=== PATIENT | female | born 1990 | race Caucasian/White ===

== ENCOUNTER 2020-04-14 15:08 | Emergency (ER) | payer MEDICAID ==
[~2020-04-14] VITALS: Ht 172.7 cm; Wt 48.0 kg
[2020-04-14 15:43] LABS: MICROSCOPIC AUTO
[2020-04-14] MEDS ORDERED: HYDROmorphone 1 MG/ML, 1ML INJ ONE (15:53)
[2020-04-14] MEDS ORDERED: ONDANSETRON 2MG/ML, 2ML ONE (15:53)
--- NOTE | 2020-04-14 15:57 | NUR ---
PIV PLACED BY TASK RN. LABS COLLECTED AND TAKEN BY EDUCATION ANALYST. MEDS ADMIN PER JAN. PT TAKEN TO US.
[2020-04-14] MEDS ORDERED: PLEASE ENTER ALLERGIES MC SCH (16:00)
[2020-04-14] MEDS ORDERED: MORPHINE SULFATE 4 MG/ML, 1ML IVPush PRN (16:00)
[2020-04-14] MEDS ORDERED: HYDROmorphone 2 MG/ML, 1ML IVPush PRN (16:00)
[2020-04-14] MEDS ORDERED: ONDANSETRON 2MG/ML, 2ML IVPush ONE (16:00)
[2020-04-14 16:03] LABS: BASOPHILS # (AUTO) 0.04 x10^3/uL (0-0.1); BASOPHILS % (AUTO) 0 % (0-1); EOSINOPHILS # (AUTO) 0.42 x10^3/uL (0-0.4); EOSINOPHILS % (AUTO) 5 % (1-7); LYMPHOCYTES # (AUTO) 2.59 x10^3/uL (1-3.4); LYMPHOCYTES % (AUTO) 29 % (22-44); MD NO; MEAN CORPUSCULAR HEMOGLOBIN 28.3 pg (27.0-34.8); MEAN CORPUSCULAR HGB CONC 32.2 g/dL (32.4-35.8); MEAN CORPUSCULAR VOLUME 87.9 fL (80-100); MEAN PLATELET VOLUME 8.3 fL (7.4-10.4); MONOCYTES # (AUTO) 0.51 x10^3/uL (0.2-0.8); MONOCYTES % (AUTO) 6 % (2-9); NEUTROPHILS # (AUTO) 5.35 x10^3/uL (1.8-6.8); NEUTROPHILS % (AUTO) 60 % (42-75); PLATELET COUNT 320 x10^3/uL (130-400); RED BLOOD COUNT 4.51 x10^6/uL (3.82-5.3); RED CELL DISTRIBUTION WIDTH 13.3 % (9.6-15.2)
[2020-04-14 16:11] LABS: ALBUMIN 4.1 g/dL (3.4-5.0); ANION GAP 6 mmol/L (5-15); CHLORIDE 108 mmol/L (98-107); CREATININE 0.87 mg/dL (0.55-1.02)
--- NOTE | 2020-04-14 16:28 | NUR ---
PT BACK FROM US. PT STATES PAIN HAS DECREASED AFTER PAIN MEDS. YAWN.
[2020-04-14 16:43] VITALS: BP 102/49
--- NOTE | 2020-04-14 16:47 | NUR ---
ALL RESULTS ARE BACK AT THIS TIME. CHART UP FOR RECHECK.
== END 2020-04-14 17:22 | disposition home or self-care (01) ==
LOC: ED 16:25
DX: N83.202 Unspecified ovarian cyst, left side (principal); N30.00 Acute cystitis without hematuria; F17.200 Nicotine dependence, unspecified, uncomplicated; Z90.49 Acquired absence of other specified parts of digestive tract; Z90.722 Acquired absence of ovaries, bilateral
CPT/HCPCS: 36415; 76830; 80048; 81001; 82040; 84703; 85025; 87077; 87086; 96374; 96375; 99284; J1170; J2405; 87186

== ENCOUNTER 2020-04-16 21:48 | Emergency (ER) | payer MEDICAID ==
--- NOTE | 2020-04-16 22:13 | NUR ---
CALLED PT IN LOBBY WITHOUT ANWSER X1
--- NOTE | 2020-04-16 22:19 | NUR ---
CALLED PT IN LOBBY WITHOUT ANWSER X2
--- NOTE | 2020-04-16 22:27 | NUR ---
CALLED PT IN LOBBY WITHOUT ANWSER X3
== END 2020-04-16 22:29 | disposition left against medical advice (07) ==
LOC: ED 21:50
DX: R10.2 Pelvic and perineal pain (principal); Z53.21 Procedure and treatment not carried out due to patient leaving prior to being seen by health care provider

== ENCOUNTER 2020-04-29 22:58 | Emergency (ER) | payer MEDICAID ==
[~2020-04-29] VITALS: Ht 172.7 cm; Wt 46.7 kg
[2020-04-29 23:06] VITALS: BP 121/79
--- NOTE | 2020-04-29 23:20 | NUR ---
PT TO ED WITH C/O LEFT SIDED PELVIC PAIN. PT REPORTS HX OF OVARIAN CYST AND HAD RIGHT OVARY REMOVED. REPORTS PAIN STARTED AT THE BEGINNING OF THE MONTH BUT HAS PROGRESSIVELY GOTTEN WORSE. DENIES ANY VAGINAL DISCHARGE OR URINARY SYMPTOMS.
--- NOTE | 2020-04-29 23:39 | NUR ---
PT TO US
[2020-04-29 23:52] LABS: BASOPHILS # (AUTO) 0.18 x10^3/uL (0-0.1); BASOPHILS % (AUTO) 2 % (0-1); EOSINOPHILS # (AUTO) 0.33 x10^3/uL (0-0.4); EOSINOPHILS % (AUTO) 4 % (1-7); LYMPHOCYTES % (AUTO) 31 % (22-44); MD NO; MEAN CORPUSCULAR HEMOGLOBIN 28.2 pg (27.0-34.8); MEAN CORPUSCULAR HGB CONC 32.1 g/dL (32.4-35.8); MEAN CORPUSCULAR VOLUME 87.8 fL (80-100); MEAN PLATELET VOLUME 9.3 fL (7.4-10.4); MONOCYTES # (AUTO) 0.53 x10^3/uL (0.2-0.8); MONOCYTES % (AUTO) 6 % (2-9); NEUTROPHILS # (AUTO) 4.68 x10^3/uL (1.8-6.8); NEUTROPHILS % (AUTO) 56 % (42-75); PLATELET COUNT 314 x10^3/uL (130-400); RED BLOOD COUNT 4.33 x10^6/uL (3.82-5.3); RED CELL DISTRIBUTION WIDTH 13.2 % (9.6-15.2)
--- NOTE | 2020-04-30 00:03 | NUR ---
PT RETURNED FROM US AND UA SENT.
[2020-04-30 00:04] LABS: ALANINE AMINOTRANSFERASE 14 U/L (12-78); ALBUMIN 3.8 g/dL (3.4-5.0); ANION GAP 3 mmol/L (5-15); CALCIUM 8.8 mg/dL (8.5-10.1); CHLORIDE 108 mmol/L (98-107); CREATININE 0.74 mg/dL (0.55-1.02)
[2020-04-30 00:08] LABS: ALKALINE PHOSPHATASE 49 U/L (45-117); BILIRUBIN,TOTAL 0.3 mg/dL (0.2-1.0); TOTAL PROTEIN 6.8 g/dL (6.4-8.2)
[2020-04-30 00:46] LABS: MICROSCOPIC INDICATED
== END 2020-04-30 01:27 | disposition home or self-care (01) ==
LOC: ED 04-30 01:25
DX: N83.292 Other ovarian cyst, left side (principal); R00.0 Tachycardia, unspecified
CPT/HCPCS: 36415; 76856; 80053; 81001; 84703; 85025; 87086; 99284

== ENCOUNTER 2020-10-10 03:27 | Emergency (ER) | payer MEDICAID ==
[~2020-10-10] VITALS: Ht 170.2 cm; Wt 48.0 kg
[2020-10-10 03:57] LABS: BASOPHILS % (AUTO) 1 % (0-1); EOSINOPHILS % (AUTO) 4 % (1-7); LYMPHOCYTES % (AUTO) 31 % (22-44); MEAN CORPUSCULAR HGB CONC 33.3 g/dL (32.4-35.8); MEAN PLATELET VOLUME 8.2 fL (7.4-10.4); MONOCYTES % (AUTO) 13 % (2-9); NEUTROPHILS % (AUTO) 51 % (42-75); PLATELET COUNT 278 x10^3/uL (130-400); RED BLOOD COUNT 3.96 x10^6/uL (3.82-5.3); RED CELL DISTRIBUTION WIDTH 13.4 % (9.6-15.2)
[2020-10-10 03:58] LABS: MD NO
[2020-10-10] MEDS ORDERED: HYDROmorphone 1 MG/ML, 1ML INJ ONE (03:58)
[2020-10-10] MEDS ORDERED: ONDANSETRON ODT 4 MG ONE (03:58)
[2020-10-10] MEDS ORDERED: PLEASE ENTER ALLERGIES MC SCH (04:00)
[2020-10-10] MEDS ORDERED: HYDROmorphone 1 MG/ML, 1ML INJ IM ONE (04:00)
[2020-10-10] MEDS ORDERED: ONDANSETRON ODT 4 MG PO ONE (04:00)
[2020-10-10] MEDS ORDERED: PLEASE ENTER DRUG ALLERGIES MC SCH (04:02)
[2020-10-10 04:05] LABS: ANION GAP 4 mmol/L (5-15); CALCIUM 8.2 mg/dL (8.5-10.1); CHLORIDE 111 mmol/L (98-107); CREATININE 0.59 mg/dL (0.55-1.02)
[2020-10-10 04:26] LABS: HCG UR SG 1.026 (1.003-1.030)
[2020-10-10 04:29] LABS: MICROSCOPIC INDICATED
--- NOTE | 2020-10-10 04:35 | NUR ---
Pt refused transvaginal US due to pain/pt agreed to to doing a transabdominal/pt pain has improved
--- NOTE | 2020-10-10 06:18 | NUR ---
pt needs to drink more water to perform an accurate US. Pt is refusing to drink anymore water. US tech spoke to pt about the importance of Exam. Shooter Helper spoke to pt about the importance of exam. ED provider also spoke to pt about importance of exam. Pt continued to refuse drinking water. Pt adamant about leaving AMA.
[2020-10-10 06:22] VITALS: BP 95/62
== END 2020-10-10 06:24 | disposition left against medical advice (07) ==
LOC: ED 04:04
DX: R10.32 Left lower quadrant pain (principal); Z90.89 Acquired absence of other organs; Z90.721 Acquired absence of ovaries, unilateral; F17.210 Nicotine dependence, cigarettes, uncomplicated
CPT/HCPCS: 36415; 80048; 81001; 81025; 85025; 87086; 96372; 99283; J1170; Q0162

== ENCOUNTER 2020-12-09 03:29 | Emergency (ER) | payer MEDICAID ==
[~2020-12-09] VITALS: Ht 170.2 cm; Wt 50.0 kg
--- NOTE | 2020-12-09 03:43 | NUR ---
Walks to bathroom/room for sample. Pt hunched over, tearful 2nd to pain.
[2020-12-09] MEDS ORDERED: ONDANSETRON 2MG/ML, 2ML ONE (03:59)
[2020-12-09] MEDS ORDERED: ONDANSETRON 2MG/ML, 2ML IVPush ONE (04:00)
[2020-12-09] MEDS ORDERED: MORPHINE SULFATE 4 MG/ML, 1ML ONE ×2 (04:00→04:45)
[2020-12-09] MEDS ORDERED: SODIUM CHLORIDE FLUSH 10ML SYR IVF ONE (04:00)
[2020-12-09] MEDS ORDERED: KETOROLAC 30 MG/1 ML ONE (04:00)
[2020-12-09] MEDS ORDERED: KETOROLAC 30 MG/1 ML IVPush ONE (04:00)
[2020-12-09] MEDS: MORPHINE SULFATE 4 MG/ML, 1ML IVPush PRN ×2 (04:05→04:47)
--- NOTE | 2020-12-09 04:08 | NUR ---
pt placed on cr monitor, to bedside to boogie pt, she is in extreme pain, and splinting the right side. piv to left ac started 20g, pt tolerated well. blood drawn and sent to lab. pts ua sample sent to lab too. pain meds given per emar, and pt taken to ultrasound by tech. states some small relief of pain at this time.
[2020-12-09 04:12] LABS: BASOPHILS % (AUTO) 1 % (0-1); EOSINOPHILS % (AUTO) 3 % (1-7); LYMPHOCYTES % (AUTO) 29 % (22-44); MEAN CORPUSCULAR HEMOGLOBIN 28.3 pg (27.0-34.8); MEAN CORPUSCULAR HGB CONC 32.5 g/dL (32.4-35.8); MEAN PLATELET VOLUME 8.7 fL (7.4-10.4); MONOCYTES % (AUTO) 6 % (2-9); NEUTROPHILS % (AUTO) 61 % (42-75); PLATELET COUNT 304 x10^3/uL (130-400); RED BLOOD COUNT 4.19 x10^6/uL (3.82-5.3)
[2020-12-09 04:19] LABS: ALANINE AMINOTRANSFERASE 16 U/L (12-78); ALBUMIN 3.6 g/dL (3.4-5.0); ANION GAP 5 mmol/L (5-15); CALCIUM 8.3 mg/dL (8.5-10.1); CHLORIDE 110 mmol/L (98-107)
[2020-12-09 04:24] LABS: ALKALINE PHOSPHATASE 59 U/L (45-117); BILIRUBIN,TOTAL 0.2 mg/dL (0.2-1.0); TOTAL PROTEIN 6.7 g/dL (6.4-8.2)
[2020-12-09 04:27] LABS: MD NO
[2020-12-09 04:36] LABS: MICROSCOPIC INDICATED
--- NOTE | 2020-12-09 04:55 | NUR ---
pt still complaining of a lot of pain, 07/19, and given second dose of Morphine 4mg per emar. pt expresses relief of pain. v/s charted.
--- NOTE | 2020-12-09 05:46 | NUR ---
pt back from ct scan, in no pain at the moment, pt states she is comfortable at this time. resting in bed, good aeration and oxygenation, no acute distress, a&ox4. remains on cr monitor, lights down, call light within reach.
--- NOTE | 2020-12-09 06:31 | NUR ---
pt resting in bed, on cr monitor, and in no acute distress at this time. waiting on CT scan to be read by the radiologist. call light within reach. siderails up x2.
--- NOTE | 2020-12-09 06:47 | NUR ---
report and care to day shift RN
--- NOTE | 2020-12-09 06:48 | NUR ---
Report from Ricky [facility]. Pt resting in bed, looking at her phone, LINDA, denies needs. POC discussed.
--- NOTE | 2020-12-09 07:17 | NUR ---
Dr. Vail at bedside to discuss POC with pt.
[2020-12-09] MEDS ORDERED: HYDROcodone/APAP 5/325 TABLET ONE (07:29)
[2020-12-09 07:30] VITALS: BP 109/72
[2020-12-09] MEDS ORDERED: HYDROcodone/APAP 5/325 TABLET PO ONE (07:30)
== END 2020-12-09 07:49 | disposition home or self-care (01) ==
LOC: ED 04:03
DX: N30.00 Acute cystitis without hematuria (principal); R00.0 Tachycardia, unspecified
CPT/HCPCS: 36415; 74176; 76830; 80053; 81001; 83690; 84703; 85025; 87086; 96374; 96375; 96376; 99285; J1885; J2270; J2405